=== PATIENT | male | born 1955 | race Two or more races ===

== ENCOUNTER → 2024-07-12 | Outpatient (CLI) | payer BC, MEDICARE, SELFPAY ==
--- NOTE | 2024-07-12 10:30 | XR_ITS ---
Examination: CT chest, without intravenous contrast. Sagittal and coronal 2-D reconstructions. Exam date and time: July 12, 2024 1027 hours Comparison January 25, 2024 INDICATIONS: CT chest January 25, 2024 3 mm pulmonary nodule right upper lobe, 4 mm pulmonary nodule left lower lobe, chronic shortness of breath CTDI:vol (mGy) 24.9 DLP: (mGycm) 936 Technique: Multiple 3.0 mm axial sections of the chest to been obtained. Bone and lung density settings are obtained. Sagittal and coronal 2-D reconstructions have been obtained. Low dose protocols were performed. One or more of the following dose reduction techniques were used; automated exposure control, adjustment of the mA and/or KV according to patient size, use of iterative reconstruction technique. Findings: No thoracic aortic aneurysm dilatation Pulmonary artery segments are not enlarged Significant calcification left anterior descending coronary artery No paratracheal tracheobronchial or bronchopulmonary adenopathy Again noted 3 mm pulmonary nodule right upper lobe 4 mm pulmonary nodule left lower lobe New 4 mm pleural-based pulmonary nodule right lower lobe image 50 Fatty infiltration throughout the liver IMPRESSION: New 4 mm pleural-based pulmonary nodule right lower lobe, recommend continued 6 month follow-up CT chest without contrast
== END | disposition home or self-care (01) ==
PROVIDERS: PCP Nurse Practitioner Family; Referring Provider Specialist; Visit Provider Specialist
DX: R91.8 Other nonspecific abnormal finding of lung field (principal)
CPT/HCPCS: 71250

== ENCOUNTER → 2025-03-03 | Outpatient (CLI) | payer BC, MEDICARE, SELFPAY ==
--- NOTE | 2025-03-03 15:08 | XR_ITS ---
Examination: CT chest, without intravenous contrast. Sagittal and coronal 2-D reconstructions. Exam date and time: March 03, 2025 1517 hours INDICATIONS: 3 mm pulmonary nodule right upper lobe 4 mm pulmonary nodule left lower lobe 4 mm pulmonary nodule right lower lobe on CT chest July 12, 2024 CTDI:vol (mGy) 21.8 DLP: (mGycm) 889 Technique: Multiple 3.0 mm axial sections of the chest to been obtained. Bone and lung density settings are obtained. Sagittal and coronal 2-D reconstructions have been obtained. Low dose protocols were performed. One or more of the following dose reduction techniques were used; automated exposure control, adjustment of the mA and/or KV according to patient size, use of iterative reconstruction technique. Findings: No thoracic aortic aneurysm dilatation. Moderate calcification left anterior descending coronary artery. Mild enlargement cardiac contour. No mediastinal lymphadenopathy. Stable bilateral pulmonary nodules No new pulmonary nodules No pneumonia or pulmonary edema Fatty infiltration throughout the liver Cholelithiasis IMPRESSION: Stable bilateral pulmonary nodules compared with July 12, 2024, no new pulmonary nodules
== END | disposition home or self-care (01) ==
LOC: CCTX 14:51
PROVIDERS: PCP Nurse Practitioner Family; Referring Provider Specialist; Visit Provider Specialist
DX: R91.8 Other nonspecific abnormal finding of lung field (principal)
CPT/HCPCS: 71250

== ENCOUNTER → 2025-05-15 | Outpatient (CLI) | payer BC, MEDICARE, SELFPAY ==
--- NOTE | 2025-05-15 11:30 | XR_ITS ---
EXAMINATION: Ultrasound abdominal aorta Date and time: May 15, 2025, 11:13 a.m., comparison March 21, 2024 INDICATIONS: Proximal aorta 3.0 x 3.0 cm on ultrasound March 21, 2024 TECHNIQUE AND FINDINGS: Terrell scale sonographic images abdominal aorta Transverse dimension proximal aorta 3.0 cm mid aorta 2.5 cm distal aorta 2.5 cm right iliac 18 mm left iliac 17 mm IMPRESSION: Stable mild aneurysmal dilatation proximal aorta, 3.0 x 2.8 cm
== END | disposition home or self-care (01) ==
PROVIDERS: PCP Nurse Practitioner Family; Referring Provider Surgery Vascular Surgery; Visit Provider Surgery Vascular Surgery
DX: I71.43 Infrarenal abdominal aortic aneurysm, without rupture (principal)
CPT/HCPCS: 76706